=== PATIENT | female | born 1970 | race Caucasian/White ===

== ENCOUNTER 2020-08-20 17:15 | Outpatient (CLI) | payer BC, SELFPAY ==
--- NOTE | ~2020-08-20 | MM_ITS ---
EXAMINATION: MM screening [facility] BI w renea HISTORY: Screening TECHNIQUE: Craniocaudal and mediolateral oblique 3-D tomosynthesis images were obtained and synthetic 2-D images were generated. CAD analysis was submitted and interpreted. COMPARISON: Comparison to multiple prior studies sequentially, with oldest reviewed study dated 02/20. BREAST PARENCHYMAL COMPOSITION: Breast composed of scattered areas of fibroglandular density. FINDINGS: There is no evidence of suspicious mass, calcification, or architectural distortion to sugg est malignancy in either breast. There has been no suspicious interval change. IMPRESSION: 1. No mammographic evidence of malignancy. 2. Recommend routine screening mammography in one year. BI-RADS Category 1: Negative Reviewed, dictated and finalized at location A.
== END 2020-08-20 17:16 | disposition home or self-care (01) ==
LOC: ANHIMG 17:17
PROVIDERS: Visit Provider Obstetrics & Gynecology
DX: Z12.31 Encounter for screening mammogram for malignant neoplasm of breast (principal)
CPT/HCPCS: 77063; 77067

== ENCOUNTER 2021-11-10 07:47 | Outpatient (CLI) | payer BC, SELFPAY ==
--- NOTE | ~2021-11-10 | MM_ITS ---
EXAMINATION: MM screening [facility] BI w renea HISTORY: Screening TECHNIQUE: Craniocaudal and mediolateral oblique 3-D tomosynthesis images were obtained and synthetic 2-D images were generated. CAD analysis was submitted and interpreted. COMPARISON: Comparison to multiple prior studies sequentially, with oldest reviewed study dated 02/20. BREAST PARENCHYMAL COMPOSITION: There are scattered areas of fibroglandular density. FINDINGS: There is no evidence of suspicious mass, calcification, or architectural distortion to sugg est malignancy in either breast. There has been no suspicious interval change. IMPRESSION: 1. No mammographic evidence of malignancy. 2. Recommend routine screening mammography in one year. BI-RADS Category 1: Negative Reviewed, dictated and finalized at location A.
== END 2021-11-10 07:48 | disposition home or self-care (01) ==
LOC: ANHIMG 07:50
PROVIDERS: Visit Provider Obstetrics & Gynecology
DX: Z12.31 Encounter for screening mammogram for malignant neoplasm of breast (principal)
CPT/HCPCS: 77063; 77067

== ENCOUNTER 2021-11-17 00:48 | Day surgery (SDC) | payer BC, SELFPAY ==
[2021-11-05 10:56] VITALS: BMI 28.4
--- NOTE | 2021-11-14 17:31 | P.HP_ITS ---
History of Present Illness History of Present Illness Consent: Risks, benefits, and alternatives have been discussed and questions answered. Patient agrees to proceed with procedure. Chief complaint: neoplasm screening Narrative: Manisha Hare is a 51 year old female Referred for colon cancer screening. Review of Systems Review of Systems: All systems reviewed & are unremarkable except as noted in HPI and below [facility] Social History Social History Smoking status: Never smoker Alcohol intake: never Substance use type: does not use Living arrangements: with family Spiritual care concerns: No Meds Home Medications and Allergies Home Medications Medication Instructions Recorded Confirmed Type norethindrone acetate 1 mg-ethinyl 1 tablet PO DAILY 11/05/21 11/17/21 History estradiol 20 mcg tablet (Junel) Allergies Allergy/AdvReac Type Severity Reaction Status Date / Time No Known Allergies Allergy Verified 11/17/21 08:34 Exam Const: General: alert Orientation/consciousness: patient oriented x3 Resp: Auscultation: clear to auscultation bilaterally Cardio: Rhythm: regular rhythm GI: GI Palp: Yes Soft to palpation and No Tenderness to palpation present (GI) Neuro: General: patient oriented x3 Assessment and Plan Assessment and plan (1) Colon cancer screening: Code(s): Z12.11 - Encounter for screening for malignant neoplasm of colon Status: Acute Assessment and Plan: Colonoscopy with possible biopsy or polypectomy or cautery or injection of substances.
[2021-11-17 08:36] VITALS: BP 136/79; PULSE 88; RESP 16; TEMP 36.7; O2SAT 99
--- NOTE | 2021-11-17 08:46 | P.PNAN_ITS ---
Anes - Initial Pre Proc Eval Procedure: Operation Date: 11/17/21 09:30 Proposed Procedures p Screening Colonoscopy - Tavo George MD Date/Time: 11/17/21 08:46 Surgeon: Tavo George MD Pre Op Diagnosis: neoplasm screening Patient Data Age: 51 Gender: F Height: 1.61 m Weight: 73 kg Last Vital Signs Temp 36.7 C 11/17/21 08:36 Pulse 88 11/17/21 08:36 Resp 16 11/17/21 08:36 BP 136/79 11/17/21 08:36 Pulse Ox 99 11/17/21 08:36 O2 Del Method Room Air 11/17/21 08:36 Allergies Allergy/AdvReac Type Severity Reaction Status Date / Time No Known Allergies Allergy Verified 11/17/21 08:34 Home Medications Medication Instructions Recorded Confirmed Type norethindrone acetate 1 mg-ethinyl 1 tablet PO DAILY 11/05/21 11/17/21 History estradiol 20 mcg tablet (June) Patient hx anesthesia problems: none Family hx anesthesia problems: none Results Review: All pre-operative results and documents have been reviewed as part of the pre- operative evaluation. PMF Social History Social History Smoking status: Never smoker Alcohol intake: never Substance use type: does not use Living arrangements: with family Spiritual care concerns: No Anes - Eval Final PreProcedure Day of Procedure 11/17/21 08:46 Patient weight: overweight Heart: regular rate and rhythm Lungs: clear to auscultation and normal air movement Airway: Mallampati scale class II Neurological: alert and oriented Last oral intake: >/= 8 hours ASA classification: II Emergent: no Anesthetic plan: proceed Anesthesia type and monitoring: general GIVS Results Review: All pre-operative results and documents have been reviewed as part of the pre- operative evaluation. Informed Consent: The patient's anesthetic plan and its attendant risks and benefits were discussed with the patient/family/POA. Questions were solicited and answers provided to the satisfaction of the patient/family/POA.
[2021-11-17] MEDS: LACTATED RINGERS 1,000 ML 150 ML IV CONT (08:51)
[2021-11-17 09:30] VITALS: BP 88/57; PULSE 74; RESP 18; O2SAT 100
[2021-11-17 09:40] VITALS: BP 115/73; PULSE 74; RESP 18; O2SAT 100
[2021-11-17 09:50] VITALS: BP 138/73; PULSE 68; RESP 16; O2SAT 100
== END 2021-11-17 09:58 | disposition home or self-care (01) ==
PROVIDERS: Referring Provider Obstetrics & Gynecology; Visit Provider Internal Medicine Gastroenterology
PROC: 0DJD8ZZ Inspection of Lower Intestinal Tract, Via Natural or Artificial Opening Endoscopic (ICD-10-PCS; CPT 45378; principal; 2021-11-17 09:30)
DX: Z12.11 Encounter for screening for malignant neoplasm of colon (principal); D12.3 Benign neoplasm of transverse colon; K64.8 Other hemorrhoids
CPT/HCPCS: 45381; 45385; 88305; J2704; J7120

== ENCOUNTER 2022-03-03 08:36 | Outpatient (CLI) | payer BC, SELFPAY ==
--- NOTE | 2022-03-03 11:00 | NEURO_ITS ---
Impression: # Complains of dysesthesia and cramps at night in left lower extremity. History of lower back surgery. # Normal nerve conduction study including F-waves. # Needle/EMG exam revealed neurogenic changes on the left but no active fibrillations or myotonia. # Findings compatible with old neurogenic changes. Motor Nerve Conduction Lower Extremities Peroneal Nerve Conduction Velocity (m/sec) Terminal Latency (msec) Response Voltage(mV) Popliteal space-Ankle Ankle Extensor Dig Brevis Popliteal space Ankle Right 54 4.0 3 5 Left 55 4.1 2 2 Tibial Nerve Conduction Velocity (m/sec) Terminal Latency (msec) Response Voltage(mV) Popliteal space-Ankle Ankle-Extensor Dig Brevis Popliteal space Ankle Right 51 4.1 5 6 Left 51 4.0 5 7 F-waves Peroneal Nerve (ms) Tibial Nerve (ms) Right 45.6 45.2 Left 46.4 46.1 Sensory Nerve Conduction Lower Extremities Sural Nerve Stimulation Terminal Latency (msec) Ankle Response Voltage (uV) Ankle Response Velocity (m/sec) Right 3.4 8 47 Left 3.0 15 50 Superficial Peroneal Nerve Stimulation Terminal Latency (msec) Ankle Response Voltage (uV) Ankle Response Velocity (m/sec) Right 2.9 12 55 Left 2.6 8 48 Left Right Muscles Examined Fibrillation Fasciculation Scarcity Voltage Duration Left Right Left Right Left Right Left Right Left Right X X Ant Tibialis Reduced X X Gastroc Reduced X X Fibularis Long Reduced X X Flex Dig Long Reduced X X Ext Dig Brev Reduced Abd Hallucis Quadriceps Paraspinals MTDD
== END 2022-03-03 08:37 | disposition home or self-care (01) ==
LOC: ANHNEURO 08:38
PROVIDERS: Visit Provider Podiatrist Foot & Ankle Surgery
DX: G57.53 Tarsal tunnel syndrome, bilateral lower limbs (principal)
CPT/HCPCS: 95886; 95910

== ENCOUNTER 2023-02-16 07:37 | Outpatient (CLI) | payer BC, SELFPAY ==
--- NOTE | ~2023-02-16 | MM_ITS ---
EXAMINATION: MM screening [facility] BI w renea HISTORY: Screening mammogram TECHNIQUE: Craniocaudal and mediolateral oblique 3-D tomosynthesis images were obtained and synthetic 2-D images were generated. CAD analysis was submitted and interpreted. COMPARISON: 11/10/2021, 08/20/2020, 03/23/2019 BREAST PARENCHYMAL COMPOSITION:There are scattered areas of fibroglandular density. FINDINGS: No suspicious mass, calcification, or architectural distortion are identified in either birgit ast to suggest malignancy. There has been no suspicious interval change. IMPRESSION: No mammographic evidence of malignancy. Recommend routine screening mammography in one year. BI-RADS Category 1: Negative Reviewed, dictated and finalized at location . ET INSTALLER
== END 2023-02-16 07:38 | disposition home or self-care (01) ==
PROVIDERS: Visit Provider Obstetrics & Gynecology
DX: Z12.31 Encounter for screening mammogram for malignant neoplasm of breast (principal)
CPT/HCPCS: 77063; 77067

== ENCOUNTER 2024-05-29 07:33 | Outpatient (CLI) | payer BC, SELFPAY ==
--- NOTE | ~2024-05-29 | MM_ITS ---
EXAMINATION: MM screening [place] BI w renea HISTORY: Screening mammogram TECHNIQUE: Craniocaudal and mediolateral oblique 3-D tomosynthesis images were obtained and synthetic 2-D images were generated. CAD analysis was submitted and interpreted. COMPARISON: 02/16/2023, 11/10/2021, 08/20/2020, 03/23/2019 BREAST PARENCHYMAL COMPOSITION:Not Dense. There are scattered areas of fibroglandular density. FINDINGS: Questionable obscured left subareolar mass. Stable parenchymal appearance of the right isra st. No suspicious mass, calcification. IMPRESSION: Questionable obscured left subareolar mass. Spot compression views and possibly ultrasound are recomm ended for further evaluation. BI-RADS Category 0: Incomplete: Needs additional imaging evaluation. Reviewed, dictated and finalized at [facility]. IMPRESSION: Questionable obscured left subareolar mass. Spot compression views and possibly ultrasound are recommended for further evaluation. BI-RADS Category 0: Incomplete: Needs additional imaging evaluation.
--- OUTSIDE RECORDS SUMMARY | 2024-05-29 07:43 | XMS_ITS | Encounter Summary ---
Author Organization [facility] Address [address] [place] [address] Care Team Providers Care Agricultural Produce Packer Name Role Phone Sonia Muniz MD Primary Care Provider [phone] Encounter Details Date Type Department Care Team (Late st Contact Info) Description 02/12/2023 iReTron, Inct Message Enc [facility] Medical [facility] Family & Internal Medicine [facility] [id number] [place] [phone] [place] [id number] [place] [address]. [address] [place] [address] My recent bloodwork and EKB Social History Tobacco Use Types Packs/Day Years Used Date Smoking Tobacco: Never Smokeless Tobacco: Never Alcohol Use Standard Drinks/Week Comments Not Currently 0 (1 standard drink = 0.6 oz pur e alcohol) PHQ-2 Answer Date Recorded Patient Health Questionnaire-2 Score 0 02/12/2023 Comments No Sex and Gender Information Value Date Recorded Sex Assigned at Not on file Legal Sex Female 7:36 PM CDT Gender Identity Not on file Sexual Orientation Not on file documented as of this encounter Progress Notes * Tonie Alvarez RN - 02/12/2023 10:45 AM CST Printed attachments and placed in folder for review N SERVICES WORKER documented in this encounter Plan of Treatment Upcoming Encounters Date Type Department Care Team (Late st Contact Info) Description 03/09/2025 7:20 AM HUMAN SERVICES WORKER Office Visit [facility] Family & Internal Medicine - [place] [address] [place] [address] [place] [address] [facility] [place] [address] documented as of this encounter Visit Diagnoses Not on filedocumented in this encounter Care Teams Agricultural Produce Packer Relationship Specialty [place] [address] [facility] [address] [place] [address] PCP - General FAMILY PRACTICE 01/29/22 documented as of this encounter
--- OUTSIDE RECORDS SUMMARY | 2024-05-29 07:43 | XMS_ITS | Clinical Summary ---
Author Organization [facility] Address [address] [place] [address] Care Team Providers Care Fiber Optics Supervisor Name Role Phone William Muniz MD Primary Care Provider [phone] Allergies No known active allergies Medications norethindrone-e thinyl estradiol (MICROGESTIN 04/10) 1-20 MG-MCG tablet Take 1 tablet by mouth daily. 2 Active clindamycin (CLEOCIN T) 1 % gel Apply under the arms once daily. 30 days supply 4 Active QBREXZA 2.4 % Pads Apply 1 Application topically daily. 4 Active tretinoin (RETIN-A) 0.025 % cream Pea sized amount to entire face at night. 30 days supply. 4 Active Active Problems Problem Noted Date Diagnosed Date S/P surgical manipulation of ankle joint 022 S/P lumbar discectomy 01/30/2022 Patellofemoral syndrome of right knee 01/30/2022 Neuropathy 01/30/2022 Encounters Date Type Department Care Team Description 03/29/2024 Scan [facility] Scanned, Doc [facility] 03/09/2024 9:25 AM MOTOR ROOM CONTROLLER - 03/09/2024 11:59 PM [facility] Hospital Encounter [facility] Diagnostic Imaging [address] [place] [address] William Muniz MD Discharge Disposition: Home or Self Care (Routine Discharge) 03/08/2024 5:41 PM MOTOR ROOM CONTROLLER - 03/08/2024 11:59 PM MOTOR ROOM CONTROLLER Hospital Encounter [facility] Laboratory [address] [place], [place] [id number] William Muniz MD Discharge Disposition: Home or Self Care (Routine Discharge) 03/08/2024 3:00 PM MOTOR ROOM CONTROLLER Laboratory Only [facility] Family & Internal [facility] [address] [place] [address] William Muniz MD 03/08/2024 2:20 PM MOTOR ROOM CONTROLLER Office Visit [facility] Family & Internal Medicine [facility] [address] [place] [address] William Muniz MD Annual 03/08/2024 Travel from Last 3 Months Immunizations Name Administration Dates Next Due Fluzone (IIV3, Trivalent, 0.5 ML Prefilled Syrin ge) 03/08/2024 Influenza (Generic) 01/11/2021 Td (TDVAX) 05/31/2008 Tdap (Adacel) 01/30/2022 Family History Medical History Relation Comments Diabetes Father Relation Status Comments Father Alive Mother Alive Social History Tobacco Use Types Packs/Day Years Used Date Smoking Tobacco: Never Smokeless Tobacco: Never Tobacco Cessation:Counseling Given: No Alcohol Use Standard Drinks/Week Comments Not Currently 0 (1 standard drink = 0.6 oz pur e alcohol) PHQ-2 Answer Date Recorded Patient Health Questionnaire-2 Score 0 03/08/2024 Comments No Sex and Gender Information Value Date Recorded Sex Assigned at Not on file Legal Sex Female 7:36 PM CDT Gender Identity Not on file Sexual Orientation Not on file Last Filed Vital Signs Vital Sign Reading Time Taken Comments Blood Pressure 154/90 03/08/2024 2:56 PM MOTOR ROOM CONTROLLER Pulse 64 03/08/2024 2:56 PM MOTOR ROOM CONTROLLER Temperature 36.8 C (98.2 F) 03/08/2024 2:23 PM MOTOR ROOM CONTROLLER Respiratory Rate 14 03/08/2024 2:23 PM MOTOR ROOM CONTROLLER Oxygen Saturation 98% 03/08/2024 2:2 3 PM MOTOR ROOM CONTROLLER Inhaled Oxygen Concentration - - Weight 72.9 kg (160 lb 11.2 oz) 03/08/2024 2:23 PM MOTOR ROOM CONTROLLER home weight Height 162.6 cm (5' 4 ) 03/08/2024 2:23 PM MOTOR ROOM CONTROLLER Body Mass Index 27.58 03/08/2024 2:23 PM MOTOR ROOM CONTROLLER Plan of Treatment Upcoming Encounters Date Type Department Care Team (Late st Contact Info) Description 03/09/2025 7:20 AM MOTOR ROOM CONTROLLER Office Visit [facility] Medical Group Family & Internal Medicine [facility] [address] [place] [address] [place] [address] [facility]. [address] [place] [address] Health Maintenance Due Date Last Done Comments Cervical Cancer Screening Pa p Smear (Age 30 to 64) Every 3 Years 1970 Hepatitis C 1988 Hepatitis B Vaccines (1 of 3 - 19+ 3-dose series) 1989 Cervical Cancer Screening Pa p with HPV Testing (Age 30 to 64) Every 5 Years 2000 Mammogram Screening 2010 COVID-19 Vaccine (2023-2 5 season) 2023 01/14/2021, 06/11/2020, 05/21/2020 PHQ-2 (Physician [facility] [place]) 03/22/2024 03/08/2024 Cervical Cancer Screening with HPV 03/08/2025 Postponed from 07/01 (Going to Outside Clinic) PHQ-2 (Physician [facility] [place]) 03/08/2025 03/08/2024 Annual Physical 03/09/2025 02/12/2023 Postponed fr om 02/13/2024 (Per Provider Recommendation) Colorectal Cancer Screening Colonoscopy (10 Years) 03/22/2025 DTaP, Tdap and Td Vaccines ( 2 - Td or Tdap) 01/31/2032 01/30/2022, 05/31/2008 Zoster Vaccines (1 of 2) 01/29/2038 Pos tponed from 2020 (Going to Outside Clinic) Influenza Adult Completed 03/08/2024, 01/11/2021 Meningococcal B Vaccine Aged Out No l onger eligible based on patient's age to complete this topic Meningococcal Vaccine Aged Out No tanvir jean eligible based on patient's age to complete this topic Pneumococcal Vaccine: Pediatrics (0 to 5 Years) and At-Risk Patients (6 to 64 Years) Aged Out No longer eligible b ased on patient's age to complete this topic RSV Immunizations Under 20 Months Aged Out No longer eligible b ased on patient's age to complete this topic Procedures Procedure Name Priority Date/Time Associated Diagnosis Comments XR HIP RT 2V Routine 03/09/2024 9:33 AM MOTOR ROOM CONTROLLER Chronic right hip pain COLLECTION VENOUS BLOOD VENIPUNCTURE Routine 03/08/2024 3:16 PM MOTOR ROOM CONTROLLER Vitamin B12 deficiency Iron deficiency Generalized arthritis RHEUMATOID FACTOR, QUANT Routine 03/08/2024 3:05 PM MOTOR ROOM CONTROLLER Generalized arthritis URIC ACID BLOOD Routine 03/08/2024 3:05 PM MOTOR ROOM CONTROLLER Generalized arthritis CYCLIC CITRULLINATED PEPTIDE (CCP)ANTIBODY(IGG) Routine 03/08/2024 3:05 PM MOTOR ROOM CONTROLLER Generalized arthritis SED RATE, ERYTHROCYTE (ESR) Routine 03/08/2024 3:05 PM MOTOR ROOM CONTROLLER Generalized arthritis MAGNESIUM Routine 03/08/2024 3:05 PM MOTOR ROOM CONTROLLER Generalized arthritis ADRIAN IFA SCRN, [place] REFLEX TO TITER Routine 03/08/2024 3:05 PM MOTOR ROOM CONTROLLER Generalized arthritis C-REACTIVE PROTEIN Routine 03/08/2024 3: 05 PM MOTOR ROOM CONTROLLER Generalized arthritis FERRITIN Routine 03/08/2024 3:05 PM MOTOR ROOM CONTROLLER Iron deficiency IRON SAT PANEL (IRON,IBC,%SAT) Routine 03/08/2024 3:05 PM MOTOR ROOM CONTROLLER Iron deficiency VITAMIN B12 / FOLATE Routine 03/08/2024 3:05 PM MOTOR ROOM CONTROLLER Vitamin B12 deficiency from Last 3 Months Results * XR HIP RT 2V (03/09/2024 9:33 AM MOTOR ROOM CONTROLLER) Anatomical Region Laterality Modality Hip Radiographic Matilde ging 03/09/2024 6:53 PM MOTOR ROOM CONTROLLER Impressions 03/09/2024 6:54 PM MOTOR ROOM CONTROLLER IMPRESSION: 1) No acute bony abnormalities or malalignment. Ordered By: WILLIAM MUNIZ Interpreted By: Ramses Petty MD, 03/09/2024 6:53 PM Narrative 03/09/2024 6:54 PM MOTOR ROOM CONTROLLER [facility] [address] [place] [id number] Examination: XR HIP RT 2V Exam time: 03/09/2024 9:26 AM Clinical history: Right groin pain. Comparison: No previous. Technique: 2 projections. Findings: No acute bony abnormalities. There is no malalignment. The pubic bone is intact. Right SI joint is unremarkable. Procedure Note Ramses Petty MD - 03/09/2024 [facility] [address] [place] [id number] Examination: XR HIP RT 2V Exam time: 03/09/2024 9:26 AM Clinical history: Right groin pain. Comparison: No previous. Technique: 2 projections. Findings: No acute bony abnormalities. There is no malalignment. The pubicbone is intact. Right SI joint is unremarkable. IMPRESSION: 1) No acute bony abnormalities or malalignment. Ordered By: WILLIAM MUNIZ Interpreted By: Ramses Petty MD, 03/09/2024 6:53 PM William Muniz MD GENERAL IMAGING Final Result * VITAMIN B12 / FOLATE (03/08/2024 3:05 PM MOTOR ROOM CONTROLLER) VITAMIN B12 S/P/B 967 193 - 986 PG/ML 03/08/2024 6:58 PM MOTOR ROOM CONTROLLER [facility] FOLATE 17.8 8.6 - 58.9 NG/ML 03/08/2024 6:58 PM MOTOR ROOM CONTROLLER [facility] 03/08/2024 3:05 PM MOTOR ROOM CONTROLLER William Muniz MD LABORATORY Final Result [facility] [address] [place] [address], [place] [phone] * ADRIAN IFA SCRN, [place] REFLEX TO TITER (03/08/2024 3:05 PM MOTOR ROOM CONTROLLER) ADRIAN Negative Negative 03/14/2024 11:20 AM MOTOR ROOM CONTROLLER [facility] RENAE PEREIRA Comment: ADRIAN IFA is a first line screen for detecting the presence of up to approximately 150 autoantibodies in various autoimmune diseases. A negative ADRIAN IFA result suggests ADRIAN-associated autoimmune disease is not present at this time, but is not definitive. If there is high clinical suspicion for Sjogren's Syndrome, testing for anti-SS-A/Ro antibody should be considered. Anti-Elke-1 antibody should be considered for clinically suspected inflammatory myopathies. AC-0: Negative International Consensus on ADRIAN Patterns https://doi.org/10.1515/hxap-4759-0829 For additional information, please refer to http://education.[employer]/faq/UWC819 (This link is being provided for informational/ educational purposes only.) Test Performed by [facility], Ayla Thedford, [address] [place] [address] Boby Chang M.D., Ph.D., Director of Laboratories , [facility] [id number] 03/08/2024 3:05 PM MOTOR ROOM CONTROLLER William Muniz MD LABORATORY Final Result [facility] [address] , [place] [phone] * RHEUMATOID FACTOR, QUANT (03/08/2024 3:05 PM MOTOR ROOM CONTROLLER) RHEUMATOID FACTOR <10 <15 IU/ML 03/08/2024 7:54 PM MOTOR ROOM CONTROLLER [facility] 03/08/2024 3:05 PM MOTOR ROOM CONTROLLER William Muniz MD LABORATORY Final Result Performing Organization Address [facility] Co de Phone Number [facility] [address] [place] [address], [place] [phone] * CYCLIC CITRULLINATED PEPTIDE (CCP)ANTIBODY(IGG) (03/08/2024 3:05 PM MOTOR ROOM CONTROLLER) CITRULLINE PEPTIDE ANTIBODY <16 <20 Units 03/15/2024 12:12 PM MOTOR ROOM CONTROLLER [facility] JOANNE HALL Comment: Negative: <20 Weak Positive: 20 - 39 Moderate Positive: 40 - 59 Strong Positive: >59 Test Performed by Paladion Renata, [facility] [facility], [address] [place] [address] Boby Chang M.D., Ph.D., Director of Laboratories , [facility] [id number] 03/08/2024 3:05 PM MOTOR ROOM CONTROLLER William Muniz MD LABORATORY Final Result Performing Organization Address [facility] Co de Phone Number [facility] [address] , [place] [phone] * IRON SAT PANEL (IRON,IBC,%SAT) (03/08/2024 3:05 PM MOTOR ROOM CONTROLLER) IRON 111 50 - 170 MCG/DL 03/08/2024 7:12 PM MOTOR ROOM CONTROLLER [facility] IRON BINDING CAPACITY 304 250 - 450 MCG/DL 03/08/2024 7:12 PM MOTOR ROOM CONTROLLER [facility] IRON SATURATION 37 20 - 55 % 7:12 PM MOTOR ROOM CONTROLLER [facility] 03/08/2024 3:05 PM MOTOR ROOM CONTROLLER us William Muniz MD LABORATORY Final Result [facility] [address] [place] [address], [place] [phone] * SED RATE, ERYTHROCYTE (ESR) (03/08/2024 3:05 PM MOTOR ROOM CONTROLLER) ESR 6 0 - 20 MM/HR 03/08/2024 6:19 PM MOTOR ROOM CONTROLLER [facility] 03/08/2024 3:05 PM MOTOR ROOM CONTROLLER us William Muniz MD LABORATORY Final Result Performing Organization Address [facility] Co de Phone Number [facility] [address] [place] [address], [place] [phone] * (ABNORMAL) C-REACTIVE PROTEIN (03/08/2024 3:05 PM MOTOR ROOM CONTROLLER) C-REACTIVE PROTEIN 0.99(H) <0.29 mg/dL 03/08/2024 7:52 PM MOTOR ROOM CONTROLLER [facility] 03/08/2024 3:05 PM MOTOR ROOM CONTROLLER us William Muniz MD LABORATORY Final Result [facility] [address] [place] [address], [place] [phone] * MAGNESIUM (03/08/2024 3:05 PM MOTOR ROOM CONTROLLER) MAGNESIUM 2.2 1.8 - 2.4 MG/DL 03/08/2024 6:44 PM MOTOR ROOM CONTROLLER [facility] 03/08/2024 3:05 PM MOTOR ROOM CONTROLLER us William Muniz MD LABORATORY Final Result [facility] [address] [place] [address], [place] [phone] * FERRITIN (03/08/2024 3:05 PM MOTOR ROOM CONTROLLER) FERRITIN 36.0 8.0 - 388.0 NG/ML 03/08/2024 6:44 PM MOTOR ROOM CONTROLLER [facility] 03/08/2024 3:05 PM MOTOR ROOM CONTROLLER us William Muniz MD LABORATORY Final Result Performing Organization Address City/[facility] Co de Phone Number [facility] [address] [place] [address], [place] [phone] * URIC ACID BLOOD (03/08/2024 3:05 PM MOTOR ROOM CONTROLLER) URIC ACID 4.1 2.6 - 6.0 MG/DL 03/08/2024 6:44 PM MOTOR ROOM CONTROLLER [facility] 03/08/2024 3:05 PM MOTOR ROOM CONTROLLER us William Muniz MD LABORATORY Final Result Performing Organization Address City/[facility]/ZIP Co de Phone Number [facility] [address] [place] [address], [place] [phone] from Last 3 Months Insurance Care Teams Fiber Optics Supervisor Relationship Specialty [place] [address] [facility] [place] [address] PCP - General FAMILY PRACTICE 01/29/22
--- OUTSIDE RECORDS SUMMARY | 2024-05-29 07:45 | XMS_ITS | Referral Summary ---
Author Organization [facility] Address [address] [place] [address] Care Team Providers Care Loan Servicing Specialist Name Role Phone Sonia Muniz MD Primary Care Provider [phone] Source Comments [facility],non-owned Affiliates and Associated Physician Practices is amultiple site organization consisting of ambulatory clinics and hospital sitesin [place], [place], [place] and [place]. This disclosure is being madepursuant to the Care Everywhere program and may not contain all information available regarding this patient. Last updated 17.[facility] Encounters Date Type Department Care Team Description 03/20/2024 Travel from Last 3 Months Allergies No known active allergies Medications * Be aware that medications may not be up to date on this document. Alwaysverify current medications with the patient. Medication Sig Dispensed Refills Start Date End Date Status 04/10 1-20 MG-MCG tablet Take 1 (one) tablet by mouth once daily 04/01/2021 Active clindamycin 1 % gelIndications:Bromhi drosis Apply under the arms once daily. 30 days supply 75 mL 11 07/12/2023 Active Glycopyrronium Tosylate (Qbrexza) 2.4 % PADSIndications:Prima ry focal hyperhidrosis 1 Application by Apply externally route once daily 30 Each 11 07/12/2023 Active tretinoin (Retin-A) 0.025 % creamIndications:Faci al aging Pea sized amount to entire face at night. 30 days supply. 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 07/12/2023 Immunizations Name Administration Dates Next Due INFLUENZA VACCINE 01/11/2021 Social History Tobacco Use Types Packs/Day Years Used Date Smoking Tobacco: Never Smokeless Tobacco: Never Sex and Gender Information Value Date Recorded Sex Assigned at Female 05/13/2021 9:55 AM SALES ADVISOR Gender Identity Female 05/13/2021 9:55 AM SALES ADVISOR Sexual Orientation Straight 05/13/2021 9: 55 AM SALES ADVISOR Plan of Treatment Upcoming Encounters Date Type Department Care Team (Late st Contact Info) Description 07/12/2024 3:20 PM CDT Office Visit [facility] - Dermatology [address] [place] [phone] Nahomi Carrasco MD [address] [place] [address] [place] [address] Care Teams Loan Servicing Specialist Relationship Specialty [place] [address] [address] PCP - General Family Medicine 07/12/23
--- OUTSIDE RECORDS SUMMARY | 2024-05-29 07:45 | XMS_ITS | Clinical Summary ---
Author Organization [facility] Address [address] [place] [address] Care Team Providers Care Prefitter Doors Name Role Phone Sonia Muniz MD Primary Care Provider [phone] Source Comments [facility] [employer],non-owned Affiliates and Associated Physician Practices is amultiple site organization consisting of ambulatory clinics and hospital sitesin [place], [place] and [place]. This disclosure is being madepursuant to the Care Everywhere program and may not contain all information available regarding this patient. Last updated 17.[facility] [employer] Allergies No known active allergies Medications * [...] once daily. 30 days supply 75 mL 07/12/2023 Active Glycopyrronium Tosylate (Qbrexza) 2.4 % PADSIndications:Prima ry focal hyperhidrosis 1 Application by Apply externally route once daily 30 Each 07/12/2023 Active tretinoin (Retin-A) 0.025 % creamIndications:Faci al aging Pea sized amount to entire face at night. 30 days supply. 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 07/12/2023 Encounters Date Type Department Care Team Description 03/20/2024 Travel from Last 3 Months Immunizations Name Administration Dates Next Due INFLUENZA VACCINE 01/11/2021 Social History Tobacco Use Types Packs/Day Years Used Date Smoking Tobacco: Never Smokeless Tobacco: Never Sex and Gender Information Value Date Recorded Sex Assigned at Female 05/13/2021 9:55 AM TANNING WHEEL OPERATOR Gender Identity Female 05/13/2021 9:55 AM TANNING WHEEL OPERATOR Sexual Orientation Straight 05/13/2021 9: 55 AM TANNING WHEEL OPERATOR Plan of Treatment Upcoming Encounters Date Type Department Care Team (Late st Contact Info) Description 07/12/2024 3:20 PM CDT Office Visit [facility] - Dermatology [address] [place] [address], [facility] [place] [phone] Nahomi Carrasco MD [address] [place] [address] [place] [address] Health Maintenance Due Date Last Done Comments COLOGUARD (AGES 45-75) - COL ON CA SCREENING 1970 COLON MONITORING 1970 COLONOSCOPY - COLON CA SCREENING 1970 CT COLONOGRAPHY - COLON CA SCREENING 1970 Colorectal Cancer Screening 1970 FIT - COLON CA SCREENING 1970 FLEX SIG - COLON CA SCREENING 1970 LIPID TESTING 1970 MAMMOGRAM 1970 PAP SMEAR 1970 HIV SCREENING 1985 HEPATITIS C SCREENING 06/26/1988 DTAP/TDAP/TD VACCINES (1 - Tdap) 1989 HEPATITIS B VACCINE (1 of 3 - 19+ 3-dose series) 1989 PNEUMOCOCCAL VACCINE 50+ (1 of 1 - PCV) 2020 ZOSTER VACCINE (1 of 2) 2020 COVID-19 VACCINE (1 - 2023-2 5 season) 2023 INFLUENZA VACCINE (#1) 2023 01/11/2021 DEPRESSION SCREENING 03/22/2024 HIB VACCINE Aged Out No longer eligi ble based on patient's age to complete this topic HPV VACCINE Aged Out No longer eligi ble based on patient's age to complete this topic MENINGOCOCCAL (Group B) VACCINE Aged Out No longer eligible based on patient's age to complete this topic MENINGOCOCCAL VACCINE Aged Out No tanvir jean eligible based on patient's age to complete this topic Care Teams Prefitter Doors Relationship Specialty [place] [address] [address] PCP - General Family Medicine 07/12/23
--- OUTSIDE RECORDS SUMMARY | 2024-05-29 07:45 | XMS_ITS | Patient Health Summary ---
Author Organization [facility] Address [address] [place] [address] Care Team Providers Care Social Media Marketing Analyst Name Role Phone Sonia Muniz MD Primary Care Provider [phone] Note from [facility],non-owned Affiliates and Associated Physician Practices is amultiple site organization consisting of ambulatory clinics and hospital sitesin [place], [place], [place] and [place]. This disclosure is being madepursuant to the Care Everywhere program and may not contain all information available regarding this patient. Last updated 17.[facility] Allergies No known active allergies Medications * Be aware that medications may not be up to date on this document. Alwaysverify current medications with the patient. * 04/10 1-20 MG-MCG tablet(Started 04/01/2021) Take 1 (one) tablet by mouth once daily * clindamycin 1 % gel(Started 07/12/2023) Apply under the arms once daily. 30 days supply 11 refills by 07/11/2024 * Glycopyrronium Tosylate (Qbrexza) 2.4 % PADS(Started 07/12/2023) 1 Application by Apply externally route once daily 11 refills by 07/11/2024 * tretinoin (Retin-A) 0.025 % cream(Started 07/12/2023) Pea sized amount to entire face at night. 30 days supply. 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 07/12/2023 Immunizations * INFLUENZA VACCINE(Given 01/11/2021) Social History Tobacco Use Types Packs/Day Years Used Date Smoking Tobacco: Never Smokeless Tobacco: Never Sex and Gender Information Value Date Recorded Sex Assigned at Female 05/13/2021 9:55 AM FITNESS ATTENDANT Gender Identity Female 05/13/2021 9:55 AM FITNESS ATTENDANT Sexual Orientation Straight 05/13/2021 9: 55 AM FITNESS ATTENDANT Procedures * PATHOLOGY/GENETICS HISTORICAL-ONBASE(Performed 03/27/2011) * DERMATOPATHOLOGY(Performed 03/19/2011) Results * PATHOLOGY/GENETICS HISTORICAL-ONBASE (03/27/2011) 03/27/2011 Historical Provider LAB - CHEMISTRY O RDERABLES [facility] * PATHOLOGY TISSUE FOR DERMATOLOGY (03/19/2011 4:08 PM FITNESS ATTENDANT) Result CASE: [id number] PATIENT: MANISHA MERCHANT PATHOLOGIC DIAGNOSIS: Left abdomen: COMPOUND MELANOCYTIC NEVUS, ERODED CLINICAL DATA: Irritated inflamed nevus, R/O Atypia. GROSS DESCRIPTION: Received is one formalin filled container labeled with the patient's name and designated left abdomen. The specimen consists of a punch biopsy measuring [id number], bisected. Jar 0. MICROSCOPIC DESCRIPTION: There are nests of melanocytes at the dermal-epiderm al junction and within the dermis. The epidermis is focally eroded. A Fruita-1/Melan-A stain highlights the junctional and dermal melanocytic nests. Final Diagnosis performed by Tamra Lloyd M.D. Electronically signed 03/27/2011 11:07:43AM [facility] Comment: Performed at: Dermatopathology Laboratory [facility] Department of Dermatology [address] [place] [address], [address] [place] [address] Phone number: [phone] Toll Free: [phone] FAX: [phone] Skin (tissue) specimen (specimen) 03/19/2011 4:08 PM FITNESS ATTENDANT 03/20/2011 Narrative [facility] - 03/27/2011 11:08 AM FITNESS ATTENDANT Preferred Lab:->Derm-Path Specimen A: Type->Shave Site->left abdomen History->5mm brown papule with excoriation Impression->irritated inflamed nevus, r/o atypia Check Margins:->N/A Prior Biopsy->N/A Jignesh Pelaez MD LAB - PATHOLOGY/CYTO LOGY ORDERABLES [facility] [address] [phone] Care Teams Social Media Marketing Analyst Relationship Specialty [place] [id number] [phone] PCP - General Family Medicine 07/12/23
== END 2024-05-29 07:34 | disposition home or self-care (01) ==
LOC: ANHIMG 07:40
PROVIDERS: PCP Family Medicine; Visit Provider Obstetrics & Gynecology
DX: Z12.31 Encounter for screening mammogram for malignant neoplasm of breast (principal); R92.8 Other abnormal and inconclusive findings on diagnostic imaging of breast
CPT/HCPCS: 77063; 77067

== ENCOUNTER 2024-06-16 12:20 | Outpatient (CLI) | payer BC, SELFPAY ==
--- NOTE | ~2024-06-16 | MMUS_ITS ---
EXAMINATION: MM diagnostic [facility] LT w renea, US breast LT limited HISTORY: 53-year-old woman with no significant family or personal history of breast cancer presents f or diagnostic evaluation of a questionable obscured left subareolar mass described on screening [facility] mography dated 05/29/2024 TECHNIQUE: Additional 3-D tomosynthesis images of the left breast were performed and synthetic 2-D im ages were generated. CAD analysis was submitted and interpreted. High resolution focused left breast ultrasound was performed. COMPARISON: 05/29/2024 and dating back to 03/23/2019 BREAST PARENCHYMAL COMPOSITION:Not Dense. There are scattered areas of fibroglandular density. FINDINGS: MAMMOGRAPHIC FINDINGS: No discrete asymmetries are identified within the retroareolar position of the left breast. The abnor mality on prior imaging may have represented a summation artifact (overlapping fibroglandular tissues ) for which focused ultrasound will be performed for confirmation ULTRASOUND: Multiple dilated tubular structures are identified within the subareolar position, without internal d ebris or vascularity, likely ductal ectasia. Sonographic evaluation of the remainder of the subareolar portion of the left breast demonstrates mynor ign fibroglandular elements without a cystic or solid lesion of concern. IMPRESSION: No mammographic/tomographic or sonographic evidence to suggest malignancy. Resumption of yearly mammography is recommended BI-RADS Category 2: Benign finding(s). Reviewed, dictated and finalized at location A. IMPRESSION: No mammographic/tomographic or sonographic evidence to suggest malignancy. Resumption of yearly mammography is recommended BI-RADS Category 2: Benign finding(s).
--- OUTSIDE RECORDS SUMMARY | 2024-06-16 12:49 | XMS_ITS | Clinical Summary ---
Author Organization [facility] Address [address] [place] [address] Care Team Providers Care Subway Conductor Name Role Phone Sonia Muniz MD Primary Care Provider [phone] Source Comments [facility] [employer],non-owned Affiliates and Associated Physician Practices is amultiple site organization consisting of ambulatory clinics and hospital sitesin [place], [place], [place] and [place]. This disclosure is being madepursuant to the Care Everywhere program and may not contain all information available regarding this patient. Last updated 17.[facility] [employer] Allergies No known active allergies Medications * [...] Sex Assigned at Female 05/13/2021 9:55 AM SLED MAKER Gender Identity Female 05/13/2021 9:55 AM SLED MAKER Sexual Orientation Straight 05/13/2021 9: 55 AM SLED MAKER Plan of Treatment Upcoming Encounters Date Type Department Care Team (Late st Contact Info) Description 07/12/2024 3:20 PM CDT Office Visit [facility] - Dermatology [address] [place] [address], [facility] [place] [phone] Nahomi Carrasco MD [address] [place] [address] [place] [address] Health Maintenance Due Date Last Done Comments [...] to complete this topic MENINGOCOCCAL (Group B) VACC INE SHARED DECISION-MAKING Aged Out No longer eligibl e based on patient's age to complete this topic MENINGOCOCCAL GROUPS A/C/Y/W VACCINE Aged Out No longer eligible b ased on patient's age to complete this topic Care Teams Subway Conductor Relationship Specialty [place] [address] [phone] PCP - General Family Medicine 07/12/23
--- OUTSIDE RECORDS SUMMARY | 2024-06-16 12:49 | XMS_ITS | Clinical Summary ---
Author Organization [facility] Address [address] [place] [address] Care Team Providers Care Grooving Machine Operator Name Role Phone Sonia Muniz MD Primary Care Provider [phone] Allergies No known active allergies Medications norethindrone-e [...] Type Department Care Team Description 03/29/2024 Scan [facility] INFO SRVCS Scanned, Doc Med Group from Last 3 Months Immunizations Name Administration [...] Comments Blood Pressure 154/90 03/08/2024 2:56 PM CALCULUS TEACHER Pulse 64 03/08/2024 2:56 PM CALCULUS TEACHER Temperature 36.8 C (98.2 F) 03/08/2024 2:23 PM CALCULUS TEACHER Respiratory Rate 14 03/08/2024 2:23 PM CALCULUS TEACHER Oxygen Saturation 98% 03/08/2024 2:2 3 PM CALCULUS TEACHER Inhaled Oxygen Concentration - - Weight 72.9 kg (160 lb 11.2 oz) 03/08/2024 2:23 PM CALCULUS TEACHER home weight Height 162.6 cm (5' 4 ) 03/08/2024 2:23 PM CALCULUS TEACHER Body Mass Index 27.58 03/08/2024 2:23 PM CALCULUS TEACHER Plan of Treatment Upcoming Encounters Date Type Department Care Team (Late st Contact Info) Description 03/09/2025 7:20 AM CALCULUS TEACHER Office Visit [facility] Family & Internal Medicine [address] [phone] Sonia Muniz MD [address] [place] [address]. [address] [place] [address] Health Maintenance Due Date Last Done [...] season) 2023 01/14/2021, 06/11/2020, 05/21/2020 PHQ-2 (Physician [place]) 03/22/2024 03/08/2024 Cervical Cancer Screening with HPV 03/08/2025 Postponed from 07/01 (Going to Outside Clinic) Annual Physical 03/09/2025 02/12/2023 Postponed fr om [...] on patient's age to complete this topic Insurance Care Teams Grooving Machine Operator Relationship Specialty [place] [address] [address] [place] [address] PCP - General FAMILY PRACTICE 01/29/22
--- OUTSIDE RECORDS SUMMARY | 2024-06-16 12:49 | XMS_ITS | Encounter Summary ---
Author Organization [facility] Address [address] [place] [address] Care Team Providers Care Classification Control Clerk Name Role Phone Sonia Muniz MD Primary Care Provider Encounter Details Date Type Department Care Team (Late st Contact Info) Description 02/12/2023 [employer] Message Enc [facility] Family & Internal Medicine [facility] [address] [place] [phone] [place] Muniz [place] [phone] [place] [address]. [address] [place] [address] My recent bloodwork and EKB [...] attachments and placed in folder for review HIATRIC AIDE documented in this encounter Plan of Treatment Upcoming Encounters Date Type Department Care Team (Late st Contact Info) Description 03/09/2025 7:20 AM PSYCHIATRIC AIDE Office Visit [facility] Family & Internal Medicine - [place] [address] [place] [address] [place] [address] [address] [place] [address] documented as of this encounter Visit Diagnoses Not on filedocumented in this encounter Care Teams Classification Control Clerk Relationship Specialty [place] [address] [address] [place] [address] PCP - General FAMILY PRACTICE 01/29/22 documented as of this encounter
== END 2024-06-16 12:21 | disposition home or self-care (01) ==
LOC: ANHIMG 12:23
PROVIDERS: PCP Family Medicine; Visit Provider Obstetrics & Gynecology
DX: R92.8 Other abnormal and inconclusive findings on diagnostic imaging of breast (principal)
CPT/HCPCS: 76642; 77061; 77065; G0279

== ENCOUNTER 2025-03-05 00:44 | Day surgery (SDC) | payer BC, SELFPAY ==
[2025-02-09 10:43] VITALS: BMI 29.7
--- OUTSIDE RECORDS SUMMARY | 2025-03-01 11:15 | XMS_ITS | Continuity of Care Document ---
Author Organization [facility] Address [address] [place] [address] [address] [place] [address] Phone Care Team Providers Care Assembler Body Name Role Phone Angelina Peña DPT Unavailable Unavailable Procedures Procedure Date Therapeutic Activities Neuromuscular Re-Ed Therapeutic Exercise Manual Therapy Hot or Cold Pack Therapeutic Activities Neuromuscular Re-Ed Manual Therapy Therapeutic Exercise Hot or Cold Pack Therapeutic Activities Neuromuscular Re-Ed Therapeutic Exercise Manual Therapy Hot or Cold Pack Iontophoresis Therapeutic Activities Neuromuscular Re-Ed Manual Therapy Therapeutic Exercise Hot or Cold Pack Iontophoresis Therapeutic Activities Neuromuscular Re-Ed Manual Therapy Hot or Cold Pack Iontophoresis PT Evaluation Moderate Complexity Therapeutic Activities Manual Therapy Therapeutic Activities Neuromuscular Re-Ed Manual Therapy Therapeutic Activities Neuromuscular Re-Ed Therapeutic Exercise Manual Therapy Therapeutic Activities Manual Therapy Therapeutic Activities Manual Therapy PT Evaluation Low Complexity Therapeutic Activities Manual Therapy Therapeutic Activities Neuromuscular Re-Ed Therapeutic Exercise Manual Therapy Iontophoresis Therapeutic Activities Neuromuscular Re-Ed Therapeutic Exercise Manual Therapy Iontophoresis Therapeutic Activities Neuromuscular Re-Ed Therapeutic Exercise Manual Therapy Iontophoresis Therapeutic Activities Neuromuscular Re-Ed Manual Therapy Therapeutic Exercise Iontophoresis Therapeutic Activities Neuromuscular Re-Ed Manual Therapy Therapeutic Exercise Neuromuscular Re-Ed Therapeutic Activities Therapeutic Exercise Manual Therapy Therapeutic Activities Neuromuscular Re-Ed Therapeutic Exercise Manual Therapy Therapeutic Activities Neuromuscular Re-Ed Therapeutic Exercise Manual Therapy Therapeutic Activities Neuromuscular Re-Ed Therapeutic Exercise Manual Therapy Therapeutic Activities Neuromuscular Re-Ed Therapeutic Exercise Manual Therapy Hot or Cold Pack PT Evaluation Moderate Complexity Neuromuscular Re-Ed Therapeutic Exercise Manual Therapy Hot or Cold Pack Advance Directives Directive Yes / No Effective Date File Name No Information Encounters Encounter Description Practice Location Reason(s) For Visit Diagnoses Date Provider Providers Copied on Encounter [facility] [address], [place], [place], [id number], tel:[phone] [facility] No Information Duross Angelina. . Referring Provider: Sharon Berrios [address], [place], [address]. tel:[phone] [facility] [address], [place], [place], [address], tel:[phone] [facility] No Information Duross Angelina. . Referring Provider: Sharon Berrios [address], [place], [address]. tel:[phone] [place] [address] [address], [place], [place], [address], tel:[phone] [facility] No Information Duross Angelina. . Referring Provider: Sharon Berrios [address], [place], [address]. tel:[phone] [place] [address] [address], [place], [place], [address], tel:[phone] [facility] No Information Duross Angelina. . Referring Provider: Sharon Berrios [address], [place], [address]. tel:[phone] [facility] [address], [place], [place], [address], tel:[phone] [facility] No Information Duross Angelina. . Referring Provider: Sharon Berrios [address], [place], [address]. tel:[phone] [place] [address] [address], [place], [place], [address], [place] tel:[phone] [facility] No Information Duross Angelina. . Referring Provider: Sharon Berrios [address], [place], [address]. tel:[phone] [facility], [place], [address], [place] tel:[phone] [facility] No Information Duross Angelina. . Referring Provider: Sharon Berrios [address], [place], [address]. tel:[phone] [place] [address] [address], [place], [place], [address], tel:[phone] [facility] No Information Duross Angelina. . Referring Provider: Sharon Berrios [address], [place], [address]. tel:[phone] [place] [address] [address], [place], [place], [address], [place] tel:[phone] [facility] No Information Duross Angelina. . Referring Provider: Sharon Berrios [address], [place], [address]. tel:[phone] [place] [address] [address], [place], [place], [address], [place] tel:[phone] [facility] No Information Duross Angelina. . Referring Provider: Sharon Berrios [address], [place], [address]. tel:[phone] [facility], [place], [address], [place] tel:[phone] [facility] No Information Mariana Alfaro. . Referring Provider: Sonia Muniz, [address], [place], [address]. tel:[phone] [facility], [address] [place] [address] [address], [place], [place], [address], tel:[phone] [facility] No Information Alexander Castro. [address] [place] [address], [address], [place], [place], [facility], [place]. tel:[phone] Referring Provider: Zachary Abrams, [address], [place], [address]. tel:[phone] [facility], [address] [place] [address] [address], [place], [address], tel:[phone] [facility] No Information Alexander Castro. [address] [place] [address], [address], [place], [place], [facility], [place]. tel:[phone] Referring Provider: Zachary Abrams [address], [place], [address]. tel:[phone] [facility], [address] [place] [address], [place], [address], [place] tel:[phone] [facility] No Information Alexander Castro. [address] [place] [address], [address], [place], [place], [facility], [place]. tel:[phone] Referring Provider: Zachary Abrams, [address], [place], [address]. tel:[phone], [place], [address], tel:[phone] [facility] No Information Alexander Castro. [address] [place] [address], [address], [place], [place], [facility], [place]. tel:[phone] Referring Provider: Zachary Abrams, [address], [place], [address]. tel:[phone] [facility] [address], [place], [place], [address], tel:[phone] [facility] No Information Alexander Castro. [address] [place] [address], [address], [place], [facility], . tel:[phone] Referring Provider: Zachary Abrams, [facility] [address], [place], [address]. tel:[phone] [facility] [address], [place], [address], tel:[phone] [facility] No Information Lurtz Heidi. . Referring Provider: Zachary Abrams, [facility] [address], [place], [address]. tel:[phone] [facility], [address], [place], [address], [place] tel:[phone] [facility] No Information Lurtz Heidi. . Referring Provider: Zachary Abrams, [facility] [address], [place], [address]. tel:[phone] [facility] [address], [place], [place], [address], [place] tel:[phone] [facility] No Information Lurtz Heidi. . Referring Provider: Zachary Abrams [facility] [address], [place], [address]. tel:[phone] [facility] [address], [place], [place], [address], tel:[phone] [facility] No Information Alexander Castro. [address] [place] [address], [address], [place], [address], . tel:[phone] Referring Provider: Zachary Abrams [address], [place], [address]. tel:[phone] [address], [place], [place], [address], tel:[phone] [facility] No Information Alexander Castro. [address] [facility], [address], [place], [address], . tel:[phone] Referring Provider: Zachary Abrams [address], [place], [address]. tel:[phone] [address], [place], [place], [address], tel:[phone] [facility] No Information Alexander Castro. [address] [facility], [address], [place], [address], . tel:[phone] Referring Provider: Zachary Abrams [address], [place], [address]. tel:[phone] Family History Family Member Type Diagnosis Age At Onset No Information Payers Payer name Insurance type Covered republican ID Authorjamal stevelauren(s) [facility] [id number] Social History Type Description Quantity Date Captured Comments Sex Female Smoking Status No Information Chief Complaint And Reason For Visit No Information Reason For Referral Reason For Referral No Information Plan Of Treatment Date Type Action Status Appointment Manisha Hare *[place]$ BOOKED Appointment Manisha Hare *[place]$ [place]OOKED Appointment Manisha Hare *[place]$ BOOKED Appointment Manisha Hare *[place]X$ [place]OOKED History Of Present Illness Encounter Date Complaint History Of Prese nt Illness No Information Functional Status Date Functional Assessmen t No Information Instructions Date Instruction Additional Infor mation No Information Assessments Type Assessment Date No Information Patient Care Teams Name Effective Dates (start - stop) Status Members No Information
--- OUTSIDE RECORDS SUMMARY | 2025-03-05 00:47 | XMS_ITS | Clinical Summary ---
Author Organization [facility] Address [address] [place] [address] Care Team Providers Care Piping Engineer Name Role Phone Sonia Muniz MD Primary Care Provider [phone] Source Comments [facility],non-owned Affiliates and Associated Physician Practices is amultiple site organization consisting of ambulatory clinics and hospital sitesin [place], [place], [place] and [place]. This disclosure is being madepursuant to the Care Everywhere program and may not contain all information available regarding this patient. Last updated 17.[facility] Allergies No known active allergies Medications * Be aware that medications may not be up to date on this document. Alwaysverify current medications with the patient. 04/10 1-20 MG-MCG tablet Take 1 (one) tablet by mouth once daily 04/01/2021 Active tretinoin (Retin-A) 0.025 % creamIndication s:Facial aging Pea sized amount to entire face at night. 30 days supply. 20 g 11 07/12/2024 Active clindamycin (Cleocin) 1 % lotion Apply to affected area on axilla daily. 30 day supply. 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 07/12/2023 Immunizations Immunization Administration Dates Next Due INFLUENZA VACCINE 01/11/2021 Social History Tobacco Use Types Packs/Day Years Used Date Smoking Tobacco: Never Smokeless Tobacco: Never Alcohol Use Standard Drinks/Week Comments Not Currently 0 (1 standard drink = 0.6 oz pur e alcohol) Comments Unknown Sex and Gender Information Value Date Recorded Sex Assigned at Female 05/13/2021 9:55 AM TAX AGENT Legal Sex Female 7:07 PM TAX AGENT Gender Identity Female 05/13/2021 9:55 AM TAX AGENT Sexual Orientation Straight 05/13/2021 9: 55 AM TAX AGENT Last Filed Vital Signs Vital Sign Reading Time Taken Comments Blood Pressure - - Pulse - - Temperature - - Respiratory Rate - - Oxygen Saturation - - Inhaled Oxygen Concentration - - Weight 74.8 kg (165 lb) 07/12/2024 3:15 PM CDT Height 160 cm (5' 3) 07/12/2024 3:15 PM CDT Body Mass Index 29.23 07/12/2024 3:15 PM CDT Plan of Treatment Health Maintenance Due Date Last Done Comments COLOGUARD (AGES 45-75) - COL ON CA SCREENING 1970 COLON MONITORING 1970 COLONOSCOPY - COLON CA SCREENING 1970 CT COLONOGRAPHY - COLON CA SCREENING 1970 Colorectal Cancer Screening 1970 FIT - COLON CA SCREENING 1970 FLEX SIG - COLON CA SCREENING 1970 LIPID TESTING 1970 HIV SCREENING 1985 HEPATITIS C SCREENING 06/26/1988 DTAP/TDAP/TD VACCINES (1 - Tdap) 1989 HEPATITIS B VACCINE (1 of 3 - 19+ 3-dose series) 1989 PAP SMEAR 07/02/1991 PNEUMOCOCCAL VACCINE 50+ (1 of 1 - PCV) 2020 ZOSTER VACCINE (1 of 2) 2020 DEPRESSION SCREENING 03/22/2024 SCREENING FOR DIABETES 07/12/2024 COVID-19 VACCINE (1 - 2024-2 6 season) 2024 INFLUENZA VACCINE (#1) 2024 , 01/11/2021 MAMMOGRAM 06/16/2026 06/16/2024 HIB VACCINE Aged Out No longer eligi ble based on patient's age to complete this topic HPV VACCINE Aged Out No longer eligi ble based on patient's age to complete this topic MENINGOCOCCAL (Group B) VACCINE SHARED DECISION-MAKING Aged Out No longer eligible based on patient's age to complete this topic MENINGOCOCCAL GROUPS A/C/Y/W VACCINE Aged Out No longer eligible b ased on patient's age to complete this topic Insurance ANTH Care Teams Piping Engineer Relationship Specialty [place] [address] [address] [address] PCP - General Family Medicine 07/12/23
--- OUTSIDE RECORDS SUMMARY | 2025-03-05 00:47 | XMS_ITS | Clinical Summary ---
Author Organization [facility] Address [address] [place] [address] Care Team Providers Care Product Assembler Name Role Phone Sonia Muniz MD Primary Care Provider [phone] Allergies No known active allergies Medications norethindrone-e [...] at night. 30 days supply. 4 Active MIMVEY 1-0.5 MG Tab Take 1 tablet by mouth daily. 5 Active Active Problems Problem Noted Date Diagnosed Date Plantar fasciitis of right foot 01/26/2025 S/P surgical manipulation of ankle joint 022 S/P lumbar discectomy 01/30/2022 Patellofemoral syndrome of right knee 01/30/2022 Neuropathy 01/30/2022 Encounters Date Type Department Care Team Description 02/06/2025 Scan [facility] Scanned, Doc Med Group 01/26/2025 3:20 PM COW WASHER Office Visit [facility] Medical [facility] Family & Internal Medicine [address] [address] Sonia Muniz MD Shoulder Pain (Pt c/o right shoulder pain and decreased range of motion for months. No known injury. ); Results 01/26/2025 Travel from Last 3 Months Immunizations Immunization Administration Dates Next Due Fluzone (IIV3, Trivalent, [...] Date Recorded Patient Health Questionnaire-2 Score 0 01/26/2025 Comments No Sex and Gender Information Value Date Recorded Sex Assigned at Not on file Legal Sex Female 7:36 PM CDT Gender Identity Not on file Sexual Orientation Not on file Last Filed Vital Signs Vital Sign Reading Time Taken Comments Blood Pressure 137/83 01/26/2025 3:25 PM COW WASHER Pulse 85 01/26/2025 3:22 PM COW WASHER Temperature 37.1 C (98.7 F) 01/26/2025 3:22 PM COW WASHER Respiratory Rate 16 01/26/2025 3:22 PM COW WASHER Oxygen Saturation 97% 01/26/2025 3:22 PM COW WASHER Inhaled Oxygen Concentration - - Weight 78.5 kg (173 lb) 01/26/2025 3:22 PM COW WASHER Height 162.6 cm (5' 4) 01/26/2025 3:22 PM COW WASHER Body Mass Index 29.7 01/26/2025 3:22 PM COW WASHER Plan of Treatment Upcoming Encounters Date Type Department Care Team (Late st Contact Info) Description 02/01/2026 2:20 PM COW WASHER Office Visit [facility] Medical Group Family & Internal Medicine [address] [address] [place] [address] [facility] [place] [address] Health Maintenance Due Date Last Done Comments Cervical Cancer Screening Pap Smear (Age 30 to 64) Every 3 Years 1970 Hepatitis C 1988 Hepatitis B Vaccines (1 of 3 - 19+ 3-dose series) 1989 Cervical Cancer Screening Pap with HPV Testing (Age 30 to 64) Every 5 Years 2000 Pneumococcal Vaccine: 50+ Years (1 of 1 - PCV) 2020 COVID-19 Vaccine ( season) 2024 04/01/2023, 02/28/2022, 08/08/2021, Additional history exists Influenza Adult (#1) 2024 03/08/2024, 04/01/2023, 02/28/2022, Additional history exists Cervical Cancer Screening with HPV 03/08/2025 Postponed from 2000 (Going to Outside Clinic) Annual Physical 03/09/2025 02/12/2023 Postponed fr om 02/13/2024 (Per Provider Recommendation) Colorectal Cancer Screening Colonoscopy (10 Years) 03/22/2025 Mammogram Screening 06/16/2026 06/16/2024 DTaP, Tdap and Td Vaccines (2 - Td or Tdap) 01/31/2032 01/30/2022, 05/31/2008 Zoster Vaccines (1 of 2) 01/29/2038 Pos tponed from 2020 (Going to Outside Clinic) PHQ-2 (Physician [place]) Completed 01/26/2025 Hepatitis A Vaccines Aged Out No long er eligible based on patient's age to complete this topic Meningococcal B Vaccine Aged Out No l onger eligible based on patient's age to complete this topic Meningococcal Vaccine Aged Out No tanvir jean eligible based on patient's age to complete this topic RSV Immunizations Under 20 Months Aged Out No longer eligible based on patient's age to complete this topic Procedures Procedure Name Priority Date/Time Associated Diagnosis Comments MAMMOGRAM GENERIC (SCAN ORDER) 06/16/2024 from Last 3 Months or Most Recently Relevant to Health Maintenance Results * MAMMOGRAM GENERIC (SCAN ORDER) (06/16/2024) Anatomical Region Laterality Modality Other 06/16/2024 us Doc Med Group Scanned SCANNING Final Resu lt from Last 3 Months or Most Recently Relevant to Health Maintenance Insurance [facility] Care Teams Product Assembler Relationship Specialty [place] [address] [address] [place] [address] PCP - General FAMILY PRACTICE 01/29/22
--- OUTSIDE RECORDS SUMMARY | 2025-03-05 00:47 | XMS_ITS | Encounter Summary ---
Author Organization [facility] Address [address] [place] [address] Care Team Providers Care Stitch Bonder Machine Operator Helper Name Role Phone Sonia Muniz MD Primary Care Provider [phone] Encounter Details Date Type Department Care Team (Late st Contact Info) Description 02/12/2023 [employer] Message Enc [facility] Medical Group Family & Internal Medicine [facility] [address] [place] [address] [place] [address] [facility]. [address] [place] [address] My recent bloodwork and EKB [...] on file documented as of this encounter Functional Status * Over the past 2 weeks, how often have you been bothered by any of the following problems? Question Answer Date of Assessment Author Status Little interest or pleasure in doing things Not at all 02/12/2023 9:47 AM Lelo Guerra Active Feeling down, depressed, or hopeless Not at all 02/12/2023 9:47 AM Lelo Guerra Active Patient Health Questionnaire-2 Score 0 02/12/2023 9:47 AM NIPPLE MACHINE OPERATOR Lelo Murdock Active documented as of this encounter Progress Notes * Tonie Alvarez RN - 02/12/2023 10:45 AM CST Printed attachments and placed in folder for review LE MACHINE OPERATOR documented in this encounter Plan of Treatment Upcoming Encounters Date Type Department Care Team (Late st Contact Info) Description 02/01/2026 2:20 PM NIPPLE MACHINE OPERATOR Office Visit [facility] Medical Group Family & Internal Medicine - [place] [address] [place] [address] [place] [address] [facility]. [address] [place] [address] documented as of this encounter Visit Diagnoses Not on filedocumented in this encounter Care Teams Stitch Bonder Machine Operator Helper Relationship Specialty [place] [address] [facility] [place] [id number] PCP - General FAMILY PRACTICE 01/29/22 documented as of this encounter
[2025-03-05 08:40] VITALS: BP 133/75; PULSE 111; RESP 18; TEMP 37.1; O2SAT 100
[2025-03-05] MEDS: LACTATED RINGERS 1,000 ML 150 ML IV CONT (08:50)
--- NOTE | 2025-03-05 09:00 | WPDANESEPPF ---
Anes - Initial Pre Proc Eval Procedure: Operation Date: 03/05/25 10:00 Proposed Procedures p Screening Colonoscopy - Colin Villa MD Date/Time: 03/05/25 09:00 Surgeon: Colin Villa MD Pre Op Diagnosis: Personal history of colon polyps, unspecified Patient Data Age: 54 Gender: F Height: 1.6 m Weight: 77.5 kg Last Vital Signs Temp 98.7 F 03/05/25 08:40 Pulse 111 H 03/05/25 08:40 Resp 18 03/05/25 08:40 BP 133/75 03/05/25 08:40 Pulse Ox 100 03/05/25 08:40 O2 Del Method Room Air 03/05/25 08:40 Allergies Allergy/AdvReac Type Severity Reaction Status Date / Time No Known Allergies Allergy Verified 02/09/25 10:42 Home Medications ?Medication ?Instructions ?Recorded ?Confirmed ?Type norethindrone acetate 1 mg-ethinyl 1 tablet PO DAILY 11/05/21 02/09/25 History estradiol 20 mcg tablet (Junel) clindamycin phosphate 1 % lotion 1 applic topical DAILY 02/09/25 02/09/25 History Patient hx anesthesia problems: none Family hx anesthesia problems: none Results Review: All pre-operative results and documents have been reviewed as part of the pre-operative evaluation. [facility] Social History Social History Smoking status: Never smoker Alcohol intake: never Substance use type: does not use Living arrangements: with family Spiritual care concerns: No Anes - Eval Final PreProcedure Day of Procedure 03/05/25 09:00 Patient weight: obese Lungs: normal air movement Airway: Mallampati scale class II Neurological: alert and oriented Last oral intake: >/= 8 hours ASA classification: II Emergent: no Anesthetic plan: proceed Anesthesia type and monitoring: general and standard monitoring Results Review: All pre-operative results and documents have been reviewed as part of the pre-operative evaluation. BMI 30, pt without cp or sob w walking 1-2 fos. Informed Consent: The patient's anesthetic plan and its attendant risks and benefits were discussed with the patient/family/POA. Questions were solicited and answers provided to the satisfaction of the patient/family/POA.
--- NOTE | 2025-03-05 09:09 | P.HP_ITS ---
History of Present Illness History of Present Illness Consent: Risks, benefits, and alternatives have been discussed and questions answered. Patient agrees to proceed with procedure. Chief complaint: Personal history of colon polyps, unspecified Narrative: Manisha Hare is a 54 year old female with colon polyp in 2021 Review of Systems Review of Systems: All systems reviewed & are unremarkable except as noted in HPI and below PMFSH Past Medical History Medical History (Updated 03/05/25 @ 09:09 by Colin Villa MD) Colon polyp Social History Social History Smoking status: Never smoker Alcohol intake: never Substance use type: does not use Living arrangements: with family Spiritual care concerns: No Meds Home Medications and Allergies Home Medications ?Medication ?Instructions ?Recorded ?Confirmed ?Type norethindrone acetate 1 mg-ethinyl 1 tablet PO DAILY 0 11/05/21 02/09/25 History estradiol 20 mcg tablet (Junel) clindamycin phosphate 1 % lotion 1 applic topical KELLIE Y 02/09/25 02/09/25 History Allergies Allergy/AdvReac Type Severity Reaction Status Date / Time No Known Allergies Allergy Verified 02/09/25 10:42 Vital Signs Vital Signs - 24 hr 03/05/25 08:40 Temperature 98.7 F Pulse Rate 111 H Respiratory Rate 18 Blood Pressure 133/75 Pulse Oximetry 100 Oxygen Delivery Room Air Exam Const: General: comfortable and no acute distress HENMT: Face/Nose/Sinus: Normal nares present Eyes: General: appearance normal, both eyes and all related structures Neck: Neck: no JVD Resp: Auscultation: clear to auscultation bilaterally Cardio: Rate: regular rate Rhythm: regular rhythm GI: Inspection: non-distended GI Palp: Yes Soft to palpation Skin: General skin exam: normal color Extrem: General: normal to inspection Psych: Mental Status: mental status grossly normal Assessment and Plan Assessment and plan (1) Colon polyp: Code(s): K63.5 - Polyp of colon Status: Acute Assessment and Plan: colonoscopy
--- NOTE | 2025-03-05 09:25 | S_PTH ---
PATIENT: Manisha Hare [facility]: [facility]#:[id number] AGE/SX: 54/F ROOM: RE03/05/[address]: Colin Villa MD : 1970 BED: DIS: 03/05/2025 SPEC #: [id number] RECD: 03/05/25 10:00 STATUS: JEROD GOLDSMITH #: [id number] GÉNESIS: 03/05/25 09:[address]: Colin Villa DEPT: [facility] Surgical RECD BY: Nicolle Cross ENTERED: 03/05/25 10:00 SP TYPE: Surgical OTHR DR: Sonia MunizMD Tissues: A - Colon Polypectomy B - Colon Polypectomy Procedures: Hematoxylin and Eosin Stain Gross and Microscopic Level 4
[2025-03-05 09:26] VITALS: BP 119/69; PULSE 97; RESP 20; O2SAT 99
[2025-03-05 09:36] VITALS: BP 123/78; PULSE 89; RESP 16; O2SAT 99
[2025-03-05 09:46] VITALS: BP 109/80; PULSE 81; RESP 20; O2SAT 99
== END 2025-03-05 09:57 | disposition home or self-care (01) ==
PROVIDERS: PCP Family Medicine; Referring Provider Internal Medicine Gastroenterology; Visit Provider Internal Medicine Gastroenterology
PROC: 0DJD8ZZ Inspection of Lower Intestinal Tract, Via Natural or Artificial Opening Endoscopic (ICD-10-PCS; CPT 45378; principal; 2025-03-05 10:00)
DX: Z12.11 Encounter for screening for malignant neoplasm of colon (principal); D12.3 Benign neoplasm of transverse colon; D12.4 Benign neoplasm of descending colon; K64.8 Other hemorrhoids; E66.9 Obesity, unspecified; Z68.30 Body mass index [BMI] 30.0-30.9, adult
CPT/HCPCS: 45385; 88305; J2003; J2704; J7120